=== PATIENT | female | born 1980 | race Asian ===

== ENCOUNTER 2019-06-27 15:17 | Inpatient (IN) | payer OTHER ==
[2019-06-27] MEDS ORDERED: ALBUTEROL SO4 HFA INHALER IH ONE ×2 (15:25→17:39)
[2019-06-27 15:31] VITALS: BMI 25.4
[2019-06-27 18:07] LABS: BASO % 0.2 % (0-2.0); HEMATOCRIT 34.5 % (32.4-45.2); HEMOGLOBIN 11.7 GM/dL (10.7-15.3); LYMPH % 13.8 % (8-40); MCH 27.9 pg (25.7-33.7); MCHC 34.1 g/dl (32.0-36.0); MEAN CELL VOLUME 81.9 fl (80-96); MEAN PLT VOLUME 8.3 fl (7.5-11.1); MONO % 7.7 % (3.8-10.2); NEUT % 78.3 % (42.8-82.8); PLATELET COUNT 255 K/MM3 (134-434); RBC 4.21 M/mm3 (3.60-5.2); RDW 13.2 % (11.6-15.6); VENOUS BASE EXCESS 2.6 mmol/L (-2-2); VENOUS PC02 42.4 mmHg (38-52); VENOUS PH 7.42 (7.31-7.41); WHITE BLOOD COUNT 6.2 K/mm3 (4.0-10.0)
[2019-06-27 18:08] LABS: VENOUS PO2 < 49 mmHg (28-48)
[2019-06-27 18:14] LABS: INR 1.21 (0.83-1.09); PROTHROMBIN TIME (PATIENT) 14.3 SEC (9.7-13.0)
[2019-06-27] MEDS ORDERED: AZITHROMYCIN IVPB 500 MG in DEXTROSE 5%-WATER - 250 ML IVPB ONE (18:16)
[2019-06-27] MEDS ORDERED: CEFTRIAXONE 1,000 MG in DEXTROSE 5%-WATER - 50 ML IVPB ONE (18:16)
[2019-06-27 18:17] LABS: ACTIVATED PTT 34.2 SECONDS (25.2-36.5)
[2019-06-27] MEDS ORDERED: AZITHROMYCIN IVPB 500 MG/250 ML BAG IVPB ONE (18:34)
[2019-06-27] MEDS ORDERED: CEFTRIAXONE 1 GM/50 ML BAG ONE (18:34)
[2019-06-27 18:42] LABS: BILIRUBIN,DIRECT 0.1 mg/dL (0.0-0.2); BILIRUBIN,TOTAL 0.4 mg/dL (0.2-1); BLOOD UREA NITROGEN 11.8 mg/dL (7-18); CALCIUM 7.8 mg/dL (8.5-10.1); CREATININE 0.7 mg/dL (0.55-1.3); POTASSIUM 3.6 mmol/L (3.5-5.1); TOT PROT 7.5 g/dl (6.4-8.2)
[2019-06-27] MEDS ORDERED: ALBUTEROL SO4 HFA INHALER IH PRN (20:18)
[2019-06-27] MEDS ORDERED: HYDROXYCHLOROQUINE SO4 200 MG TABLET (FP) PO SCH (21:45)
[2019-06-27] MEDS: ATORVASTATIN CA 40 MG TABLET (FP) PO SCH (22:08)
[2019-06-27] MEDS: INSULIN SLIDING SCALE (NOVOLOG) 1 VIAL SQ SCH (22:09)
[2019-06-27] MEDS: ZINC SULFATE 220 MG CAPSULE (FP) PO SCH (22:11)
[2019-06-28] MEDS: INSULIN SLIDING SCALE (NOVOLOG) 1 VIAL SQ SCH ×4 (06:37→22:27)
[2019-06-28] MEDS ORDERED: PT OWN MED DRAWER 7, Y5N ONE (09:04)
[2019-06-28] MEDS ORDERED: cefTRIAXone SODIUM 1 GM VIAL ONE (09:05)
[2019-06-28] MEDS ORDERED: DEXTROSE 5%-WATER - 50 ML IVPB ONE (09:05)
[2019-06-28] MEDS: ENOXAPARIN NA (PORCINE) 40 MG/0.4 ML DISP.SYRIN SQ SCH (09:20)
[2019-06-28] MEDS: NIFEdipine E.R. 90 MG TABLET PO SCH (09:20)
[2019-06-28] MEDS: ZINC SULFATE 220 MG CAPSULE (FP) PO SCH ×2 (09:20→22:17)
[2019-06-28] MEDS ORDERED: CEFTRIAXONE 1 GM in DEXTROSE 5%-WATER - 50 ML IVPB SCH (10:00)
[2019-06-28] MEDS ORDERED: AZITHROMYCIN IVPB 250 MG in DEXTROSE 5%-WATER - 250 ML IVPB SCH (10:00)
[2019-06-28] MEDS ORDERED: HYDROXYCHLOROQUINE SO4 200 MG TABLET (FP) PO SCH ×2 (18:00→22:00)
[2019-06-28] MEDS: HYDROXYCHLOROQUINE SO4 200 MG TABLET (FP) PO SCH (18:41)
[2019-06-28] MEDS: ATORVASTATIN CA 40 MG TABLET (FP) PO SCH (22:17)
[2019-06-29] MEDS: HYDROXYCHLOROQUINE SO4 200 MG TABLET (FP) PO SCH ×2 (05:38→17:35)
[2019-06-29] MEDS: INSULIN SLIDING SCALE (NOVOLOG) 1 VIAL SQ SCH ×4 (06:07→21:27)
[2019-06-29] MEDS: NIFEdipine E.R. 90 MG TABLET PO SCH (09:22)
[2019-06-29] MEDS: ZINC SULFATE 220 MG CAPSULE (FP) PO SCH ×2 (09:22→21:20)
[2019-06-29] MEDS: ENOXAPARIN NA (PORCINE) 40 MG/0.4 ML DISP.SYRIN SQ SCH (09:22)
[2019-06-29 13:12] LABS: BASO % 0.2 % (0-2.0); EOS % 0.4 % (0-4.5); HEMATOCRIT 35.3 % (32.4-45.2); HEMOGLOBIN 11.8 GM/dL (10.7-15.3); LYMPH % 20.5 % (8-40); MCH 27.3 pg (25.7-33.7); MCHC 33.3 g/dl (32.0-36.0); MEAN PLT VOLUME 7.5 fl (7.5-11.1); MONO % 10.7 % (3.8-10.2); NEUT % 68.2 % (42.8-82.8); PLATELET COUNT 378 K/MM3 (134-434); RDW 13.3 % (11.6-15.6); WHITE BLOOD COUNT 4.9 K/mm3 (4.0-10.0)
[2019-06-29 13:37] LABS: BLOOD UREA NITROGEN 10.6 mg/dL (7-18); CALCIUM 8.3 mg/dL (8.5-10.1); CREATININE 0.6 mg/dL (0.55-1.3); POTASSIUM 3.3 mmol/L (3.5-5.1)
[2019-06-29] MEDS ORDERED: POTASSIUM CHLORIDE TABS 20 MEQ TABLET.ER (FP) PO ONE (14:23)
[2019-06-29] MEDS: ATORVASTATIN CA 40 MG TABLET (FP) PO SCH (21:20)
[2019-06-30] MEDS: HYDROXYCHLOROQUINE SO4 200 MG TABLET (FP) PO SCH ×2 (05:40→18:32)
[2019-06-30] MEDS: INSULIN SLIDING SCALE (NOVOLOG) 1 VIAL SQ SCH ×4 (06:20→21:49)
[2019-06-30] MEDS: ZINC SULFATE 220 MG CAPSULE (FP) PO SCH ×2 (09:44→21:43)
[2019-06-30] MEDS: ENOXAPARIN NA (PORCINE) 40 MG/0.4 ML DISP.SYRIN SQ SCH (09:44)
[2019-06-30] MEDS: NIFEdipine E.R. 90 MG TABLET PO SCH (09:45)
[2019-06-30] MEDS ORDERED: DOXYCYCLINE HYCLATE 100 MG CAPSULE PO SCH (10:00)
[2019-06-30 10:11] LABS: BLOOD UREA NITROGEN 12.9 mg/dL (7-18); CALCIUM 8.6 mg/dL (8.5-10.1); CREATININE 0.6 mg/dL (0.55-1.3); POTASSIUM 3.9 mmol/L (3.5-5.1)
[2019-06-30] MEDS: ATORVASTATIN CA 40 MG TABLET (FP) PO SCH (21:43)
[2019-07-01] MEDS: HYDROXYCHLOROQUINE SO4 200 MG TABLET (FP) PO SCH (05:34)
[2019-07-01] MEDS: INSULIN SLIDING SCALE (NOVOLOG) 1 VIAL SQ SCH ×2 (06:16→11:53)
[2019-07-01 09:07] LABS: BASO % 0.7 % (0-2.0); EOS % 1.4 % (0-4.5); HEMATOCRIT 36.9 % (32.4-45.2); HEMOGLOBIN 12.4 GM/dL (10.7-15.3); LYMPH % 16.3 % (8-40); MCH 27.6 pg (25.7-33.7); MCHC 33.7 g/dl (32.0-36.0); MEAN CELL VOLUME 81.9 fl (80-96); MEAN PLT VOLUME 7.4 fl (7.5-11.1); MONO % 11.1 % (3.8-10.2); NEUT % 70.5 % (42.8-82.8); PLATELET COUNT 489 K/MM3 (134-434); RDW 13.1 % (11.6-15.6); WHITE BLOOD COUNT 6.4 K/mm3 (4.0-10.0)
[2019-07-01 09:33] VITALS: BP 119/52; PULSE 86; TEMP 98
[2019-07-01] MEDS: ZINC SULFATE 220 MG CAPSULE (FP) PO SCH (09:34)
[2019-07-01] MEDS: ENOXAPARIN NA (PORCINE) 40 MG/0.4 ML DISP.SYRIN SQ SCH (09:34)
[2019-07-01] MEDS: NIFEdipine E.R. 90 MG TABLET PO SCH (09:34)
[2019-07-01 09:43] LABS: EPI CELLS >36 /uL (0-25.1); HYALINE CASTS 4 /uL (0-3.1); URINE APPEARANCE CLEAR; URINE BACTERIA 24 /uL (0-1359); URINE BILIRUBIN NEGATIVE (NEGATIVE); URINE COLOR YELLOW; URINE GLUCOSE (UA) NEGATIVE (NEGATIVE); URINE KETONE NEGATIVE (NEGATIVE); URINE LEUK ESTERASE NEGATIVE (NEGATIVE); URINE NITRITE NEGATIVE (NEGATIVE); URINE PROTEIN 1+ (NEGATIVE); URINE RBC 12 /uL (0-23.9); URINE WBC 24 /uL (0-25.8)
[2019-07-01 10:20] LABS: BLOOD UREA NITROGEN 11.6 mg/dL (7-18); CALCIUM 8.9 mg/dL (8.5-10.1); CREATININE 0.6 mg/dL (0.55-1.3); POTASSIUM 4.2 mmol/L (3.5-5.1)
== END 2019-07-01 15:44 | disposition home or self-care (01) | DRG 137 ==
LOC: JER 15:17 → JERBED 18:56 → J7W 20:44 → OBSVTOIN 06-28 09:45
PROVIDERS: ADMIT Internal Medicine; ATTEND Internal Medicine
PROC: 8E0ZXY6 Isolation (ICD-10-PCS; principal; 2019-06-27)
DX: U07.1 COVID-19 (principal); J96.01 Acute respiratory failure with hypoxia; J12.89 Other viral pneumonia; E88.09 Other disorders of plasma-protein metabolism, not elsewhere classified; E11.9 Type 2 diabetes mellitus without complications; I10 Essential (primary) hypertension; E78.5 Hyperlipidemia, unspecified
CPT/HCPCS: 36415; 71045-TC-FY; 80048; 80053; 81003; 82248; 82550; 82728; 82803; 82962; 83036; 83605; 83615; 84703; 85025; 85610; 85730; 86140; 93005; 93010; 99285-25; G0378; U0002

== ENCOUNTER 2023-04-30 15:55 | Emergency (ER) | payer OTHER ==
[2023-04-30 16:05] VITALS: BP 118/84; PULSE 104; RESP 20; TEMP 98.2; BMI 25.7
[2023-04-30 17:28] LABS: EOS % 1.6 % (0-4.5); HEMATOCRIT 36.2 % (32.4-45.2); HEMOGLOBIN 12.4 GM/dL (10.7-15.3); LYMPH % 19.8 % (8-40); MCH 29.2 pg (25.7-33.7); MCHC 34.2 g/dl (32.0-36.0); MEAN CELL VOLUME 85.2 fl (80-96); MONO % 5.6 % (3.8-10.2); PLATELET COUNT 307 10^3/uL (134-434); RBC 4.25 M/mm3 (3.60-5.2); RDW 12.9 % (11.6-15.6); WHITE BLOOD COUNT 10.3 K/mm3 (4.0-10.0)
[2023-04-30 18:01] LABS: POTASSIUM 3.8 mmol/L (3.5-5.1)
[2023-04-30 18:03] LABS: ALBUMIN 3.8 g/dl (3.4-5.0); BLOOD UREA NITROGEN 14.2 mg/dL (7-18); CALCIUM 9.2 mg/dL (8.5-10.1)
[2023-04-30 18:06] LABS: CREATININE 0.7 mg/dL (0.55-1.3)
[2023-04-30 18:08] LABS: BILIRUBIN,TOTAL 0.2 mg/dL (0.2-1)
== END 2023-04-30 19:05 | disposition home or self-care (01) ==
LOC: JER 15:55
DX: N93.9 Abnormal uterine and vaginal bleeding, unspecified (principal); T83.32XA Displacement of intrauterine contraceptive device, initial encounter
CPT/HCPCS: 36415; 76830-TC; 80053; 84703; 85025; 86850; 86900; 86901; 99284-25